=== PATIENT | female | born 1975 | race Caucasian/White ===

== ENCOUNTER 2016-06-02 14:32 | Emergency (ER) | payer OTHER ==
[~2016-06-02] VITALS: Wt 80.0 kg
[~2016-06-02 14:32] MED LIST: FERR27TA; NPH,100V10; PREN1TAB49; SS
[2016-06-02 16:14] LABS: ADD SCAN DIFF NO
[2016-06-02 16:16] LABS: BASOPHILS % 0.5 % (0.0-2.0); EOSINOPHILS # 0.2 10^3/ul (0.0-0.5); EOSINOPHILS % 2.3 % (0.0-7.0); HEMATOCRIT 38.1 % (37.0-47.0); HEMOGLOBIN 12.6 g/dl (12.0-16.0); LYMPHOCYTES # 2.3 10^3/ul (0.8-2.9); LYMPHOCYTES % 28.4 % (15.0-51.0); MEAN CORPUSCULAR HEMOGLOBIN 29.1 pg (29.0-33.0); MEAN CORPUSCULAR HGB CONC 33.1 g/dl (32.0-37.0); MEAN PLATELET VOLUME 11.6 fl (7.4-10.4); MONOCYTE # 0.5 10^3/ul (0.3-0.9); MONOCYTES % 6.1 % (0.0-11.0); NEUTROPHIL # 5.1 10^3/ul (1.6-7.5); NEUTROPHILS % 62.5 % (39.0-77.0); PLATELET COUNT 268 10^3/UL (140-415); RED BLOOD COUNT 4.33 10^6/ul (4.20-5.40); RED CELL DISTRIBUTION WIDTH 13.2 % (11.5-14.5); WHITE BLOOD COUNT 8.2 10^3/ul (4.8-10.8)
--- NOTE | 2016-06-02 16:17 | RADRPT ---
PROCEDURE: Chest Radiograph. CLINICAL INDICATION: Chest pain TECHNIQUE: Single frontal chest radiograph. COMPARISON: None available FINDINGS: The cardiomediastinal silhouette is within normal limits. No infiltrate or effusion is seen. Th e bones are intact. IMPRESSION: 1. Unremarkable chest radiograph. RPTAT: KK .Percy Francois MD, MD Date Time Electronically viewed and signed by .Percy Francois MD, on 06/02/2016 16:17 .B/
[2016-06-02 16:27] VITALS: BP 111/100; PULSE 72; RESP 17
[2016-06-02 16:34] LABS: ALBUMIN 4.2 g/dl (3.3-4.9); CHLORIDE 102 mmol/L (97-110); POTASSIUM 3.8 mmol/L (3.5-5.1); SODIUM 142 mmol/L (135-144)
[2016-06-02 16:35] LABS: INR 0.97; PROTIME 12.9 Sec (12.2-14.2)
[2016-06-02 16:36] LABS: CREATININE 0.53 mg/dl (0.44-1.00); PARTIAL THROMBOPLASTIN TIME 26.6 Sec (25.0-35.0)
[2016-06-02 16:37] LABS: ALANINE AMINOTRANSFERASE 24 IU/L (13-69); ALBUMIN/GLOBULIN RATIO 1.23; ALKALINE PHOSPHATASE 78 IU/L (42-121); ANION GAP 17 (8-16); ASPARTATE AMINO TRANSFERASE 17 IU/L (15-46); BILIRUBIN,INDIRECT 0.8 mg/dl (0-1.1); BILIRUBIN,TOTAL 0.8 mg/dl (0.2-1.3); BLOOD UREA NITROGEN 14 mg/dl (7-20); CARBON DIOXIDE 27 mmol/L (21-31); GLUCOSE 190 mg/dl (70-220); TOTAL PROTEIN 7.6 g/dl (6.1-8.1)
[2016-06-02 16:38] LABS: CALCIUM 8.8 mg/dl (8.4-10.2)
[2016-06-02 16:50] LABS: TROPONIN-I < 0.012 ng/ml (0.00-0.12)
[2016-06-02 16:53] LABS: ADD UMIC YES; URINE BILIRUBIN (Dip) NEGATIVE (NEGATIVE); URINE BLOOD (Dip) 3+ (NEGATIVE); URINE COLOR LT. YELLOW (YELLOW); URINE KETONES (Dip) NEGATIVE (NEGATIVE); URINE LEUKOCYTE ESTERASE (Dip) 1+ (NEGATIVE); URINE NITRITE (Dip) NEGATIVE (NEGATIVE); URINE TOTAL PROTEIN (Dip) NEGATIVE (NEGATIVE); URINE UROBILINOGEN (Dip) 0.2 E.U./dL (0.1-1.0)
[2016-06-02] MEDS ORDERED: GLYB1TAB3 PO (16:57)
[2016-06-02 17:09] LABS: BACTERIA,URINE MODERATE; MUCUS,URINE MODERATE
[2016-06-02] MEDS ORDERED: KETOROLAC 15 MG INJ IV STA (17:15)
[2016-06-02] MEDS ORDERED: CIPR500T4 PO (17:22)
--- NOTE | 2016-06-02 17:22 | ERD ---
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 NO NEURO DEF. NO SOB. HPI This is a 40-year-old female presents to the emergency room for evaluation of body aches, left-sided flank pain, and generalized malaise and headache for the past 3 weeks. The patient states that her symptoms have been constant for 3 weeks and denies any new symptoms besides when she is complaining of. The patient denies any fevers, and states that she does have some pain and she localizes the pain to the left flank. The patient denies any radiation of the pain and denies it being worse with urination. ROS All systems reviewed and are negative except as per history of present illness. Medications Home Meds Reported Medications Glyburide/Metformin HCl (Glucovance 5-500 mg Tablet) 1 Each Tablet, 1 EACH PO TID, TAB 06/02/16 Discontinued Reported Medications Nph, Human Insulin Isophane* (Novolin N*) 100 U/Ml Vial 03/31/10 Insulin Human Regular (Novolin-R U-100) 100 Unit/Ml Soln 03/31/10 Ferrous Sulfate (Iron) 1 Tab Tablet 03/31/10 Vits W-Ca,Fe,Fa(<1MG) () 1 Tab Tablet 03/31/10 Allergies Allergies: Coded Allergies: Penicillins (Verified Allergy, Mild, 03/31/10) PMhx/Soc History of Surgery: Yes (GALL BLADDER) Anesthesia Reaction: No Hx Neurological Disorder: No Hx Respiratory Disorders: No Hx Cardiac Disorders: No Hx Psychiatric Problems: No Hx Miscellaneous Medical Probl: Yes (DM) Hx Alcohol Use: No Hx Substance Use: No Hx Tobacco Use: No Smoking Status: Never smoker Physical Exam Vitals Vital Signs Date Time Temp Pulse Resp B/P Pulse Ox O2 Delivery O2 Flow Rate FiO2 06/02/16 16:27 72 17 111/100 100 Room Air 06/02/16 14:36 98.6 88 20 122/68 98 Physical Exam INITIAL VITAL SIGNS: Reviewed by me GENERAL: The patient is well developed and appropriate for usual state of health in no apparent distress HEENT: Pupils equal, round, and reactive to light. EOMI. There is no scleral icterus. NECK: C-spine is soft and supple, there is no meningismus. There is no cervical lymphadenopathy. LUNGS: Clear to auscultation bilaterally. There are no rales, wheezes or rhonchi. HEART: Regular rate and rhythm, no murmurs, clicks, rubs or gallops. ABDOMEN: Left-sided CVAT, soft, non-tender, non-distended. There are bowel sounds in all four quadrants. No rebound or guarding. EXTREMITIES: There is no peripheral cyanosis or edema. No focal swelling or erythema. NEUROLOGICAL: The patient moves all four extremities with 5/5 strength. Cranial nerves II - XII are intact. Normal gait. Alert and oriented SKIN: There is no apparent rash or petechiae. HEME/LYMPHATIC: There is no evidence of excessive bruising or lymphedema. PSYCHIATRIC: The patient does not appear anxious or depressed. Result Diagram: 06/02/16 1600 06/02/16 1600 Results 24 hrs Laboratory Tests Test 06/02/16 16:00 06/02/16 16:30 Activated Partial Thromboplast Time 26.6Sec Alanine Aminotransferase (ALT/SGPT) 24IU/L Albumin 4.2g/dl Albumin/Globulin Ratio 1.23 Alkaline Phosphatase 78IU/L Anion Gap 17 Aspartate Amino Transf (AST/SGOT) 17IU/L Basophils # 0.010^3/ul Basophils % 0.5% Blood Urea Nitrogen 14mg/dl Calcium Level 8.8mg/dl Carbon Dioxide Level 27mmol/L Chloride Level 102mmol/L Creatinine 0.53mg/dl Direct Bilirubin 0.00mg/dl Eosinophils # 0.210^3/ul Eosinophils % 2.3% Globulin 3.40g/dl Glucose Level 190mg/dl Hematocrit 38.1% Hemoglobin 12.6g/dl INR International Normalized Ratio 0.97 Indirect Bilirubin 0.8mg/dl Lymphocytes # 2.310^3/ul Lymphocytes % 28.4% Mean Corpuscular Hemoglobin 29.1pg Mean Corpuscular Hemoglobin Concent 33.1g/dl Mean Corpuscular Volume 88.0fl Mean Platelet Volume 11.6fl Monocytes # 0.510^3/ul Monocytes % 6.1% Neutrophils # 5.110^3/ul Neutrophils % 62.5% Nucleated Red Blood Cells # 0.010^3/ul Nucleated Red Blood Cells % 0.0/100WBC Platelet Count 75766^3/UL Potassium Level 3.8mmol/L Prothrombin Time 12.9Sec Prothrombin Time Ratio 1.0 Red Blood Count 4.3310^6/ul Red Cell Distribution Width 13.2% Sodium Level 142mmol/L Total Bilirubin 0.8mg/dl Total Protein 7.6g/dl Troponin I < 0.012ng/ml White Blood Count 8.210^3/ul Urine Bacteria MODERATE Urine Bilirubin NEGATIVE Urine Clarity SLIGHTLY CLOUDY Urine Color LT. YELLOW Urine Epithelial Cells FEW Urine Glucose 0.25%% Urine Hemoglobin 3+ Urine Ketones NEGATIVE Urine Leukocyte Esterase 1+ Urine Microscopic RBC 5-10/HPF Urine Microscopic WBC 10-25/HPF Urine Mucus MODERATE Urine Nitrite NEGATIVE Urine Specific [place] >=1.030 Urine Total Protein NEGATIVE Urine Urobilinogen 0.2 E.U./dL Urine pH 5.5 Current Medications Medications (Trade) Dose Ordered Sig/Vicente Route PRN Reason Start Time Stop Time Status Last Admin Dose Admin Ceftriaxone Sodium (Rocephin) 50 ml @ 100 mls/hr ONCE ONCE IVPB 06/02/16 17:30 06/02/16 17:59 UNV Ketorolac Tromethamine (Toradol) 15 mg ONCE STAT IV 06/02/16 17:15 06/02/16 17:16 UNV Procedures/MDM EKG: Rate/Rhythm: [Normal Sinus Rhythm] QRS, ST, T-waves: [No changes consistent w/ acute ischemia] Impression: [No evidence of ischemia or arrhythmia] Chest X-ray 1V Interpreted by me: Soft Tissue: No acute abnormalities Bones: No acute abnormalities Mediastinum/Cardiac Silhouette/Lungs: [No acute abnormalities] This 40-year-old female presents to the ER for evaluation of multiple complaints. When I evaluated this patient she did have mild left-sided CVAT on my examination. She was also complaining of chest pain. EKG is nonischemic. Lab work was obtained including a chest x-ray which is all normal. Patient's troponin is negative. The patient did have urinalysis done which shows leukocyte esterase and white blood cells. Given her left flank pain and positive urine findings the patient was treated with Rocephin here in the emergency room. She was also given Toradol for pain with moderate resolution of her symptoms. This patient will be discharged home with a prescription for ciprofloxacin to take over the course of the next 7 days. Departure Diagnosis: Primary Impression: Acute cystitis Additional Impression: Multiple complaints Condition: Stable ZANDER BAEZ DO Jun 02, 2016 17:21
[2016-06-02] MEDS ORDERED: CEFTRIAXONE 1 GM/50 ML (PMX) 50 ML IVPB ONE (17:30)
== END 2016-06-02 18:20 | disposition home or self-care (01) ==
LOC: E/R 14:32
DX: N30.00 Acute cystitis without hematuria (principal); E11.9 Type 2 diabetes mellitus without complications; R51 Headache; R07.9 Chest pain, unspecified; Z79.4 Long term (current) use of insulin
CPT/HCPCS: 36415; 71010; 80053; 81001; 84484; 85025; 85610; 85730; 96374; 96375; J0696; J1885; Z7502; 81003; 93005